=== PATIENT | male | born 1970 | race Hispanic/Latino ===

== ENCOUNTER 2025-03-21 13:17 | Emergency (ER) | payer OTHER ==
[2025-03-21] MEDS ORDERED: Lidocaine 1% w/Epinephrine 1:200K 30 ML VIAL ONE (13:48)
== END 2025-03-21 14:21 | disposition home or self-care (01) ==
LOC: CSHERS 13:17
DX: L02.212 Cutaneous abscess of back [any part, except buttock and flank] (principal)
CPT/HCPCS: 10060